=== PATIENT | male | born 1990 | race Caucasian/White ===

== ENCOUNTER → 2023-03-22 | Outpatient (CLI) | payer OTHER, SELFPAY ==
--- NOTE | 2023-03-22 | VAS_PTH ---
PATIENT: JESUS RODRIGUEZ LOC: [facility]#:[id number] AGE/SX: 33/M ROOM: RE03/22/[address]: Dr. Rodrigo Mendez MD : 1990 BED: DIS: 03/22/2023 SPEC #: [id number] RECD: 03/22/23 13:49 STATUS: JARET NAYAK #: [id number] TALA: 03/22/23 00:[address]: Rodrigo Mendez DEPT: SURGICAL PATHOLOGY RECD BY: Sergo Sorto Tissues: A - Vas deferens, NOS B - Vas deferens, NOS Procedures: Surgery Specimen Level II HEADER OPERATION: Bilateral partial vasectomy PRE-OP DIAGNOSIS: Sterilization TISSUE SUBMITTED: A - Right vas deferens, B - Left vas deferens MICROSCOPIC DIAGNOSIS A. Right vas deferens, segmental vasectomy: Complete cross-section of vas deferens with no pathologic change. B. Left vas deferens, segmental vasectomy: Complete cross-section of vas deferens with no pathologic change. AM:adela 03/26/2023 MICROSCOPIC DESCRIPTION Slides are reviewed. GROSS DESCRIPTION A - Received is one container designated right vas deferens. The specimen consists of a tubular segment of katz soft tissue measuring 0.6 cm in length and 0.3 cm in diameter. The specimen is sectioned and submitted entirely in one cassette. B - Received is one container designated left vas deferens. The specimen consists of a tubular segment of katz soft tissue measuring 0.5 cm in length and 0.2 cm in diameter. The specimen is sectioned and submitted entirely in one cassette. / MANJIT:adela 03/25/2023 TC:4 CPT: 78255 x2
== END | disposition home or self-care (01) ==
LOC: LABSPEC 14:05
PROVIDERS: Referring Provider Surgery; Visit Provider Surgery
DX: Z30.2 Encounter for sterilization (principal)
CPT/HCPCS: 88302

== ENCOUNTER → 2023-05-03 | Outpatient (CLI) | payer OTHER, SELFPAY ==
[2023-05-03 09:31] LABS: Semen Analysis Post Vas PATH REVIEW ONLY
[2023-05-03 14:29] LABS: Pathologist Review Reviewed
== END | disposition home or self-care (01) ==
LOC: LABSPEC 08:30
PROVIDERS: PCP Surgery; Referring Provider Surgery; Visit Provider Surgery
DX: Z30.2 Encounter for sterilization (principal)
CPT/HCPCS: 89321

== ENCOUNTER → 2023-06-14 | Outpatient (CLI) | payer OTHER, SELFPAY ==
[2023-06-14 09:25] LABS: Semen Analysis Post Vas PATH REVIEW ONLY
[2023-06-17 09:37] LABS: Pathologist Review Reviewed
== END | disposition home or self-care (01) ==
PROVIDERS: PCP Surgery; Referring Provider Surgery; Visit Provider Surgery
DX: Z30.2 Encounter for sterilization (principal)
CPT/HCPCS: 89321